=== PATIENT | female | born 1965 | race Caucasian/White ===

== ENCOUNTER → 2024-01-17 | Outpatient (CLI) | payer MEDICAID, SELFPAY ==
--- NOTE | 2024-01-17 12:44 | NEURO_ITS ---
NCS and/or EMG Patient Report Ordering Doctor: Nolan Richardson DATE OF SERVICE: 01/17/24 Clinical Summary: 58 year old female patient with history of diabetes presenting with symptoms of numbness in both hands. Nerve Conduction Studies Summary: The median-D2 and median-obrien SNAP's were absent bilaterally. The right ulnar- D5 SNAP was absent. The left ulnar-D5 SNAP distal latency was prolonged with reduced amplitude. The left ulnar-obrien SNAP amplitude was reduced. The radial SNAP amplitude was reduced bilaterally. The median-APB CMAP distal latency was prolonged. The left median-APB CMAP amplitude was reduced. The median motor conduction velocity was reduced in the forearm segment bilaterally. The ulnar-ADM CMAP distal latency was prolonged bilaterally. There was a greater than 10% drop in the left ulnar-ADM CMAP amplitude across the elbow - indicative of partial motor conduction block. There was ulnar motor conduction velocity slowing across the elbow segment bilaterally and also diffusely. Needle Examination Summary: Needle examination of select muscles of the bilateral upper extremities demonstrated a higher proportion of motor unit action potentials with reduced recruitment, increased amplitude, increased duration, and polyphasia in the bilateral first dorsal interosseous and bilateral abductor pollicis brevis muscles. 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
== END | disposition home or self-care (01) ==
LOC: PSN 12:26
PROVIDERS: Referring Provider Psychiatry & Neurology Neurology; Visit Provider Psychiatry & Neurology Neurology
DX: G62.9 Polyneuropathy, unspecified (principal); G56.20 Lesion of ulnar nerve, unspecified upper limb; Z98.890 Other specified postprocedural states; M54.2 Cervicalgia
CPT/HCPCS: 95886; 95913